=== PATIENT | male | born 2000 | race African-American/Black ===

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

== ENCOUNTER 2022-02-18 13:20 | Emergency (ER) | payer OTHER ==
[~2022-02-18] VITALS: Ht 180.3 cm; Wt 77.1 kg
[2022-02-18 15:10] LABS: PLATELET COUNT 218 K/uL (142-355)
[2022-02-18 15:16] LABS: POTASSIUM 4.2 mmol/L (3.6-5.2)
[2022-02-18 16:58] VITALS: BP 108/64; TEMP 98
== END 2022-02-18 16:58 | disposition home or self-care (01) ==
LOC: ED 13:20
PROVIDERS: Emergency Medicine Emergency Medical Services
DX: K90.49 Malabsorption due to intolerance, not elsewhere classified (principal); K29.00 Acute gastritis without bleeding
CPT/HCPCS: 36415; 80053; 81000; 82150; 83690; 85027; 96360; 96374; 96375; 99284; J1885; J2405; J3490

== ENCOUNTER 2022-04-12 16:36 | Emergency (ER) | payer OTHER ==
[~2022-04-12] VITALS: Ht 180.3 cm; Wt 77.1 kg
[2022-04-12 16:41] VITALS: TEMP 99.1
[2022-04-12 18:07] VITALS: BP 118/74
== END 2022-04-12 18:08 | disposition home or self-care (01) ==
LOC: ED 16:36
DX: N39.0 Urinary tract infection, site not specified (principal)
CPT/HCPCS: 81002; 81015; 87088; 96372; 99283; J0696

== ENCOUNTER 2022-05-14 10:43 | Emergency (ER) | payer OTHER ==
[~2022-05-14] VITALS: Ht 180.3 cm; Wt 74.8 kg
[2022-05-14 11:45] LABS: PLATELET COUNT 213 K/uL (142-355)
[2022-05-14 11:56] LABS: POTASSIUM 4.1 mmol/L (3.6-5.2)
[2022-05-14 13:16] VITALS: BP 116/67; TEMP 98.5
== END 2022-05-14 13:18 | disposition home or self-care (01) ==
LOC: ED 10:43
PROVIDERS: Emergency Medicine
DX: K59.09 Other constipation (principal)
CPT/HCPCS: 36415; 80053; 81002; 82150; 83690; 85027; 96374; 96375; 99284; J2270; J2405; Q9963

== ENCOUNTER 2022-10-19 11:13 | Emergency (ER) | payer OTHER ==
[~2022-10-19] VITALS: Ht 180.3 cm; Wt 74.8 kg
[2022-10-19 11:15] VITALS: TEMP 99.2
[2022-10-19 12:07] LABS: PLATELET COUNT 204 K/uL (142-355)
[2022-10-19 12:14] LABS: POTASSIUM 4.2 mmol/L (3.6-5.2)
[2022-10-19 13:28] VITALS: BP 112/65
== END 2022-10-19 13:29 | disposition home or self-care (01) ==
LOC: ED 11:13
PROVIDERS: Family Medicine
DX: R10.84 Generalized abdominal pain (principal); R11.2 Nausea with vomiting, unspecified; J32.8 Other chronic sinusitis
CPT/HCPCS: 80053; 81002; 82150; 83690; 85027; 96374; 99284; J2405